=== PATIENT | male | born 1950 ===

== ENCOUNTER 2024-11-08 10:06 | Emergency (ER) | payer OTHER ==
[~2024-11-08] VITALS: Ht 165.1 cm; Wt 76.2 kg
[~2024-11-08 10:06] MED LIST: AMLODIPINE BESY10 MG PO; ATORVASTATIN CA10 MG PO; CLONIDINE HCL0.1 MG PO; FEROSUL325 MG PO; FINASTERIDE5 MG PO; HYDROCODON-ACE1 EAC9 PO; LEVOTHYROXINE50 MCG PO; METFORMIN HCL850 MG PO; OMEPRAZOLE40 MG PO; ROPINIROLE HCL1 MG PO; TIZANIDINE HCL4 MG PO; VITAMIN B122500 MCG IM
[2024-11-08 10:25] VITALS: PULSE 74; RESP 20; TEMP 98.2
[2024-11-08 10:45] VITALS: O2SAT 98
[2024-11-08] MEDS ORDERED: SODIUM CHLORIDE FLUSH 10 ML SYR IV PRN (10:45)
[2024-11-08 11:09] LABS: BASOPHILS % 0.5 % (0.0-1.0); EOSINOPHILS # (AUTO) 0.2 (0.0-0.4); EOSINOPHILS % 3.4 % (0.0-6.0); HEMATOCRIT 34.4 % (38.2-49.6); HEMOGLOBIN 11.2 g/dL (14.0-18.0); LYMPHOCYTES # (AUTO) 0.7 (1.0-3.2); LYMPHOCYTES % 13.4 % (18.0-39.1); MEAN CORPUSCULAR HEMOGLOBIN 30.4 pg (28-32); MEAN CORPUSCULAR HGB CONC 32.6 g/dL (31-35); MEAN CORPUSCULAR VOLUME 93.2 fL (81-99); MONOCYTES # (AUTO) 0.3 (0.2-0.8); MONOCYTES % 5.8 % (4.4-11.3); NEUTROPHILS # (AUTO) 4.3 (2.1-6.9); NEUTROPHILS % 76.7 % (38.7-80.0); PLATELET COUNT 182 x10e3/uL (140-360); RED BLOOD COUNT 3.69 x10e6/uL (4.3-5.7); RED CELL DISTRIBUTION WIDTH 12.9 % (11.7-14.4); WHITE BLOOD COUNT 5.54 x10e3/uL (4.8-10.8)
[2024-11-08 11:32] LABS: ALBUMIN 3.8 g/dL (3.5-5.0); ALBUMIN/GLOBULIN RATIO 1.5 (0.8-2.0); ANION GAP 16.7 mmol/L (8-16); BILIRUBIN,TOTAL 0.5 mg/dL (0.2-1.2); CALCIUM 9.1 mg/dL (8.4-10.2); CREATININE, SERUM 1.5 mg/dL (0.72-1.25); POTASSIUM 3.7 mmol/L (3.5-5.1); TOTAL PROTEIN 6.4 g/dL (6.5-8.1)
[2024-11-08 11:37] LABS: TROPONIN I 0.013 ng/mL (0-0.300)
== END 2024-11-08 13:11 | disposition home or self-care (01) ==
LOC: ER 11:00
DX: I95.9 Hypotension, unspecified (principal); R42 Dizziness and giddiness; H53.8 Other visual disturbances; T46.5X5A Adverse effect of other antihypertensive drugs, initial encounter; R94.31 Abnormal electrocardiogram [ECG] [EKG]
CPT/HCPCS: 36415; 71045; 80053; 83880; 84484; 85025; 93005; 94760; 99284